=== PATIENT | female | born 1980 | race Caucasian/White ===

== ENCOUNTER 2021-12-31 17:58 | Emergency (ER) | payer OTHER, SELFPAY ==
--- NOTE | ~2021-12-31 | CT_ITS ---
EXAMINATION: CT abdomen pelvis w con DATE: 12/31/2021 21:42 INDICATION: Left lower quadrant abdominal pain. TECHNIQUE: Computed tomography (CT) of the abdomen and pelvis was performed with 100 mL Omnipaque 350 intravenous contrast. Automated exposure control and iterative reconstruction technique were employe d. The dose-length product was 805.88 mGy-cm. COMPARISON: None. FINDINGS: The visualized portions of the lung bases demonstrate mild atelectasis. No pleural effusion . The heart size is normal. No pericardial effusion. There is a small sliding hiatal hernia. There is diffuse hepatic steatosis. There is a gallstone in the gallbladder neck. The gallbladder is distende d. There is fat stranding adjacent to the gallbladder. The spleen, pancreas, adrenal glands, and kidn eys are normal. There is a tubular cystic structure in left adnexa, consistent with hydrosalpinx. The re is a 3.6 cm mass in left ovary measuring greater than simple fluid in attenuation. There are no di lated loops of bowel. The appendix is normal. There are no pathologically enlarged lymph nodes. There is no free intraperitoneal fluid. There is mild lumbar spondylosis. IMPRESSION: 1. Left-sided hydrosalpinx. A 3.6 cm mass in left ovary may be a hemorrhagic cyst or abscess. 2. Acute cholecystitis. 3. Diffuse hepatic steatosis. Reviewed, dictated and finalized at [facility]. IMPRESSION: 1. Left-sided hydrosalpinx. A 3.6 cm mass in left ovary may be a hemorrhagic cy st or abscess. 2. Acute cholecystitis. 3. Diffuse hepatic steatosis.
[2021-12-31 18:00] VITALS: BP 146/98; PULSE 120; RESP 20; TEMP 36.7; O2SAT 98
[2021-12-31 18:14] LABS: Basophils Absolute Auto 0.1 K/mm3 (0.0-0.1); Basophils Percent Auto 0.3 % (0.2-1.2); Eosinophils Percent Auto 0.2 % (0-4.4); Hematocrit 42.6 % (37.0-47.0); Hemoglobin 14.8 g/dL (12.0-15.0); Immature Granulocyte Absolute 0.06 K/mm3 (0.00-0.031); Immature Granulocyte Percent A 0.4 % (0-0.5); Lymphocytes Absolute Auto 2.67 K/mm3 (0.9-3.2); Lymphocytes Percent Auto 16.5 % (18.3-44.2); Mean Corpuscular HGB Conc 34.7 g/dl (32-36); Mean Corpuscular Hemoglobin 31.6 pg (26-34); Mean Corpuscular Volume 90.8 fl (80-100); Mean Platelet Volume 10.4 fl (7.4-10.4); Monocytes Absolute Auto 0.7 K/mm3 (0.1-0.6); Monocytes Percent Auto 4.1 % (2.6-8.5); Neutrophils Absolute Auto 12.7 K/mm3 (1.3-6.7); Neutrophils Percent Auto 78.5 % (45.5-73.1); Platelet Count Result 263 k/mm3 (150-375); Red Blood Count 4.69 M/mm3 (4.2-5.4); Red Cell Distribution Width 12.6 % (11.5-14.5); White Blood Count 16.2 K/mm3 (4.5-10.0)
[2021-12-31 18:25] LABS: Alanine Aminotransferase 36 U/L (6-35); Albumin Level 4.6 g/dL (3.5-5.1); Alkaline Phosphatase 59 U/L (38-126); Anion Gap 14 mmol/L (8-16); Aspartate Amino Transferase 37 U/L (14-36); Bilirubin,Total 0.5 mg/dL (0.2-1.3); Blood Urea Nitrogen 14 mg/dL (7-17); Calcium 9.5 mg/dL (8.4-10.2); Carbon Dioxide 19 mmol/L (22-30); Chloride 107 mmol/L (98-107); Estimated CRCL calculation 122 ml/min; Estimated Glomerular Filt Rate > 60; Glucose 115 mg/dL (65-110); Lipase 70 U/L (23-300); Potassium 3.7 mmol/L (3.4-5.0); Sodium 140 mmol/L (137-145)
--- NOTE | 2021-12-31 20:54 | ED.ABDPAIN ---
HPI - Abdominal Pain General Chief Complaint: Abdominal Pain Stated Complaint: ABD PAIN, HX DIVERTICULITIS Time Seen by Provider: 12/31/21 20:41 History of Present Illness HPI narrative: Patient is a 41-year-old G1, P1 female here for evaluation of left lower quadrant abdominal pain for the past several days. Patient states the pain is aching and cramping in nature and feels similar to her history of diverticulitis. Additionally notes some nausea but no vomiting. Has attempted Tylenol 3 without relief of her pain. Her last bowel movement was normal for her. No fevers or chills, chest pain or shortness of breath. She is sexually active, denies any vaginal discharge. Related Data Allergies Allergy/AdvReac Type Severity Reaction Status Date / Time nystatin Allergy Hives Verified 12/31/21 20:55 Review of Systems Review of Systems: Gen: Denies fevers or chills Eyes: Denies eye pain or visual change ENT: Denies congestion Respiratory: Denies shortness of breath or cough CV: Denies chest pain or palpitations GI: Reports abdominal pain and nausea. Denies emesis or diarrhea denies burning, urgency, frequency or hematuria Musculoskeletal: Denies back pain or muscle pain Neuro: Denies numbness, tingling, weakness or focal weakness Skin: Denies rash Except as documented, all other systems reviewed and negative Exam Narrative: APPEARANCE: Uncomfortable appearing. Head: Normocephalic and atraumatic. EYES: PERRLA/EOMI, conjunctivae clear NOSE: No nasal drainage EARS: External ear normal in appearance THROAT: Oropharynx is clear. Mucous membranes are moist. NECK: Supple. No adenopathy, no masses. RESPIRATORY: Airway patent, respirations nonlabored. Clear to auscultation bilaterally, no rales, rhonchi, wheezing. CARDIOVASCULAR: Regular rate and rhythm without murmurs, rubs, or gallops. ABDOMINAL: Guarding left lower quadrant, tender in that area with no rebound tenderness. : Exam performed with cryptographic clerk Estrellita. Large amount of thin white vaginal discharge noted in vault. Patient notes discomfort with pelvic exam but does not have CMT. MUSCULOSKELETAL: Extremities are warm and well-perfused. Moves all extremities well. No edema. NEURO: Normal speech. No focal neurologic deficits. SKIN: Skin is warm and dry. No rashes. PSYCHIATRIC: Normal affect/mood. Course Consultations Consultation #1: Spoke with Dr. Leon, wash tub machine operator, regarding findings of cyst (hemorrhagic vs abscess), no need for an acute intervention, recommends watchful waiting and will see in clinic as outpatient Date: 12/31/21 Time: 22:56 Consultation #2: Spoke with Dr. Rascon, general surgery, feels the patient may go home with antibiotics and pain meds to follow-up in office Date: 01/01/22 Time: 01:02 Vital Signs Vital signs: Vital Signs Temperature 98.0 F 12/31/21 18:00 Pulse Rate 120 H 12/31/21 18:00 Respiratory Rate 20 12/31/21 18:00 Blood Pressure 146/98 H 12/31/21 18:00 Pulse Oximetry 98 12/31/21 18:00 Oxygen Delivery Room Air 12/31/21 18:00 Temperature 98.0 F 12/31/21 18:00 Pulse Rate 86 12/31/21 23:58 Respiratory Rate 14 12/31/21 23:58 Blood Pressure 124/86 12/31/21 23:58 Pulse Oximetry 99 12/31/21 23:58 Oxygen Delivery Room Air 12/31/21 18:00 MDM - Abdominal Pain MDM Narrative Medical decision making narrative: 41-year-old female here for evaluation of left lower quadrant abdominal pain over the past 4 days is intermittent in nature. Here she is tachycardic, vital signs otherwise normal. She has involuntary guarding in the left lower quadrant and is diffusely tender in her abdomen. Work-up significant for evidence of hydrosalpinx and a cyst in her left ovary that may be hemorrhagic or an abscess. Discussed with Dr. Leon, POULTRY CLE[employer]ER, regarding these findings, does not require any acute intervention but will likely need follow-up with an ultrasound. Patient does have a large amount of vaginal discharge in her vau
[2021-12-31] MEDS: SODIUM CHLORIDE 0.9% IV 1,000 ML 999 ML IV CONT ×2 (21:10→23:57)
[2021-12-31] MEDS: ONDANSETRON INJ 4 MG/2 ML VIAL IV PUSH (21:10)
[2021-12-31] MEDS: MORPHINE SULFATE (*CRX) 4 MG/ML INJ IV PUSH ×2 (21:10→23:57)
[2021-12-31 21:22] LABS: Appearance Urine Clear (Clear); Bilirubin Urine 1+ (Negative); Color Urine Yellow (Yellow); Glucose Urine UA Negative (Negative); Ketones Urine 1+ mg/dL (Negative); Leukocyte Esterase Ur Negative LEU/UL (Negative); Nitrate Urine Negative (Negative); Protein Urine Trace mg/dL (Negative); Specific Grav Ur >= 1.030 (1.001-1.035); Urobilinogen Urine 0.2 mg/dL (<2.0); pH Urine 5.5 (5.0-9.0)
[2021-12-31 21:31] LABS: Lactic Acid Reflex 1.4 mmol/L (0.7-2.0)
[2021-12-31 21:33] LABS: Mucus Urine Heavy /lpf; Squamous Epithelial Cell Urine Moderate /hpf (Few); WBC Urine 0-3 /hpf
[2021-12-31 21:35] LABS: Add Urine Microscopic? YES; Blood Urine Trace-Intact (Negative)
[2021-12-31 23:58] VITALS: BP 124/86; PULSE 86; RESP 14; O2SAT 99
== END 2022-01-01 04:19 | disposition home or self-care (01) ==
PROVIDERS: Emergency Medicine; Physician Assistant; Emergency Provider Emergency Medicine
DX: K81.0 Acute cholecystitis (principal); K76.0 Fatty (change of) liver, not elsewhere classified; N70.11 Chronic salpingitis; N83.9 Noninflammatory disorder of ovary, fallopian tube and broad ligament, unspecified
CPT/HCPCS: 36415; 74177; 80053; 81001; 81025; 83605; 83690; 85025; 87040; 87070; 87491; 87591; 87808; 96361; 96365; 96375; 96376; 99284; J2270; J2405; J2543; J7030; Q9967

== ENCOUNTER 2023-07-26 00:02 | Emergency (ER) | payer OTHER, SELFPAY ==
--- NOTE | ~2023-07-26 | US_ITS ---
Pelvic ultrasound. Clinical History: Left lower quadrant pain, cystic mass on CT Technique: Realtime transabdominal and transvaginal scanning of the pelvis was performed. Color flow Doppler and Doppler spectral analysis were performed. Findings: The uterus is anteverted. The endometrial stripe is poorly delineated. No focal mass is id entified. The right ovary is not visualized. No significant right ovarian or adnexal mass is seen. The left ovary measures approximately 8.6 x 5.2 x 5.1 cm. Large simple resolving hemorrhagic left ova taurus cyst measures 5.6 x 5.0 x 4.4 cm. There is additional complex left ovarian cyst, likely acute he morrhagic cyst, measuring 3.1 cm in maximum diameter. There is no evidence of free fluid in the cul de sac. Impression: Enlarged left ovary with 5.6 cm simple versus resolving hemorrhagic cyst and 3.1 cm hemorrhagic cyst. Consider follow-up ultrasound in 6-8 weeks to reassess. Reviewed, dictated and finalized at [facility]. Impression: Enlarged left ovary with 5.6 cm simple versus resolving hemorrhagic cyst and 3. 1 cm hemorrhagic cyst. Consider follow-up ultrasound in 6-8 weeks to reassess.
--- NOTE | ~2023-07-26 | CT_ITS ---
Non-contrast CT scan of the Abdomen and Pelvis Clinical indication: Left flank pain Technique: 2.5 mm axial scans were obtained through the abdomen and pelvis without intravenous or or al contrast. Dose reduction technique was used on this scan by utilizing automated exposure control a nd iterative reconstruction technique. The dose-length product (DLP) was 1201.91 mGy-cm. Findings: Images through the lung bases reveal no abnormalities. There is a 3 mm stone at the very distal left ureter, with mild left hydroureteronephrosis and left p erinephric stranding. No right renal or right ureteral stone. No right hydronephrosis. There is diffuse hepatic steatosis. Small calcified gallstone present. The spleen, pancreas, and adre nals appear normal. There is no aortic aneurysm. There is no evidence of bowel obstruction. Images through the pelvis were performed. There is no evidence of ascites or lymphadenopathy. Left ad nexal probable cystic mass measures approximately 6.4 cm in diameter. Urinary bladder unremarkable. Impression: 3 mm distal left ureteral stone with mild left hydroureteronephrosis. 6.4 cm probable cystic left adnexal mass. Consider ultrasound for further evaluation. Cholelithiasis. Diffuse hepatic stenosis. Reviewed, dictated and finalized at [facility]. Impression: 3 mm distal left ureteral stone with mild left hydroureteronephrosis. 6.4 cm probable cystic left adnexal mass. Consider ultrasound for further evalu ation. Cholelithiasis. Diffuse hepatic stenosis.
[2023-07-26 00:06] VITALS: BP 166/116; PULSE 106; RESP 15; TEMP 37.1; O2SAT 100
[2023-07-26 00:30] LABS: Basophils Percent Auto 0.3 % (0.2-1.2); Eosinophils Absolute Auto 0.1 K/mm3 (0-0.3); Eosinophils Percent Auto 0.6 % (0-4.4); Hematocrit 42.3 % (37.0-47.0); Hemoglobin 14.9 g/dL (12.0-15.0); Immature Granulocyte Absolute 0.03 K/mm3 (0.00-0.031); Immature Granulocyte Percent A 0.3 % (0-0.5); Immature Platelet Fraction Pct 4.4 % (0.9-11.2); Lymphocytes Absolute Auto 3.29 K/mm3 (0.9-3.2); Lymphocytes Percent Auto 30.5 % (18.3-44.2); Mean Corpuscular HGB Conc 35.2 g/dl (32-36); Mean Corpuscular Hemoglobin 31.2 pg (26-34); Mean Corpuscular Volume 88.5 fl (80-100); Mean Platelet Volume 10.7 fl (7.4-10.4); Monocytes Absolute Auto 0.6 K/mm3 (0.1-0.6); Monocytes Percent Auto 5.7 % (2.6-8.5); Neutrophils Absolute Auto 6.8 K/mm3 (1.3-6.7); Neutrophils Percent Auto 62.6 % (45.5-73.1); Platelet Count Result 249 k/mm3 (150-375); Red Blood Count 4.78 M/mm3 (4.2-5.4); Red Cell Distribution Width 12.3 % (11.5-14.5); White Blood Count 10.8 K/mm3 (4.5-10.0)
[2023-07-26 00:33] VITALS: BP 132/63; PULSE 89; RESP 16; O2SAT 98
--- NOTE | 2023-07-26 00:59 | ED.ABDPAIN ---
HPI - Abdominal Pain General Chief Complaint: Abdominal Pain <ALBERTO Jose Last Filed: 07/26/23 03:23> Stated Complaint: back pain <ALBERTO Jose Last Filed: 07/26/23 03:23> Time Seen by Provider: 07/26/23 00:38 <ALBERTO Jose Last Filed: 07/26/23 03:23> Source: patient <ALBERTO Jose Last Filed: 07/26/23 03:23> Mode of arrival: ambulatory <ALBERTO Jose Last Filed: 07/26/23 03:23> Limitations: no limitations <ALBERTO Jose Last Filed: 07/26/23 03:23> History of Present Illness HPI narrative: Patient is a 42-year-old female who presents the ED with report of left lower back/left flank pain. Patient reports she has had pain since around 1pm today. Has been progressively worsening. She has been driving to and from [place] over the last couple of days and thought the pain may be related to sitting for prolonged period. She tried taking a Tylenol 3 without improvement. Reports pain has began to radiate around to her left lower abdomen. Denies personal history of kidney stones, but does report family history. Reports nausea, denies vomiting. Reports oliguria, dribbling of urine. Denies dysuria, hematuria. Denies fevers. <ALBERTO Jose Last Filed: 07/26/23 03:23> Related Data Allergies/Adverse Reactions: Allergies Allergy/AdvReac Type Severity Reaction Status Date / Time nystatin Allergy Hives Verified 12/31/21 20:55 <ALBERTO Jose Last Filed: 07/26/23 03:23> Review of Systems Review of Systems: CONSTITUTIONAL: Denies fever, chills, or sweats. CARDIOVASCULAR: Denies chest pain. RESPIRATORY: Denies dyspnea. GASTROINTESTINAL: See HPI. GENITOURINARY: See HPI. MUSCULOSKELETAL: See HPI. NEUROLOGIC: Denies headache, dizziness, numbness, or weakness. <ALBERTO Jose Last Filed: 07/26/23 03:23> All systems reviewed & are unremarkable except as noted in HPI and below <ALBERTO Jose Last Filed: 07/26/23 03:23> Exam Narrative: GENERAL: Mildly uncomfortable appearing, obese with BMI of 36.3, non-toxic, in no acute distress. HEAD: Normocephalic, atraumatic. RESPIRATORY: Airway patent, respirations nonlabored. Clear to auscultation bilaterally, no rales, rhonchi, wheezing. CARDIOVASCULAR: Regular rate and rhythm without murmurs, rubs, or gallops. ABDOMINAL: Soft, TTP in L lower abdomen, nondistended. Normoactive BS. +CVA tenderness to percussion on L. MUSCULOSKELETAL: Moves all extremities. No gross deformities. SKIN: Warm, dry, normal color. NEURO: A&O X3. Speech clear. PSYCHIATRIC: Appropriate mood and affect. Normal interaction. <ALBERTO Jose Last Filed: 07/26/23 03:23> Course Vital Signs Vital signs: Vital Signs Temperature 37.1 C 07/26/23 00:06 Pulse Rate 106 H 07/26/23 00:06 Respiratory Rate 15 07/26/23 00:06 Blood Pressure 166/116 H 07/26/23 00:06 Pulse Oximetry 100 07/26/23 00:06 Oxygen Delivery Room Air 07/26/23 00:06 Temperature 37.1 C 07/26/23 00:06 Pulse Rate 76 07/26/23 03:39 Respiratory Rate 13 07/26/23 03:39 Blood Pressure 104/74 07/26/23 03:39 Pulse Oximetry 97 07/26/23 03:39 Oxygen Delivery Room Air 07/26/23 00:06 <ALBERTO Jose Last Filed: 07/26/23 03:23> Vital Signs Temperature 37.1 C 07/26/23 00:06 Pulse Rate 106 H 07/26/23 00:06 Respiratory Rate 15 07/26/23 00:06 Blood Pressure 166/116 H 07/26/23 00:06 Pulse Oximetry 100 07/26/23 00:06 Oxygen Delivery Room Air 07/26/23 00:06 Temperature 37.1 C 07/26/23 00:06 Pulse Rate 76 07/26/23 03:39 Respiratory Rate 13 07/26/23 03:39 Blood Pressure 104/74 07/26/23 03:39 Pulse Oximetry 97 07/26/23 03:39 Oxygen Delivery Room Air 07/26/23 00:06 <Ayaz Reed MD - Last Filed: 07/26/23 05:58> MDM - Abdominal Pain
[2023-07-26] MEDS: MORPHINE SULFATE (*CRX) 4 MG/ML INJ IV PUSH (01:27)
[2023-07-26] MEDS: SODIUM CHLORIDE 0.9% IV 1,000 ML 999 ML IV CONT (01:27)
[2023-07-26] MEDS: ONDANSETRON INJ 4 MG/2 ML VIAL IV PUSH ×2 (01:27→05:00)
[2023-07-26 01:41] LABS: Appearance Urine Cloudy (Clear); Bacteria Urine 3+ /hpf; Bilirubin Urine Negative (Negative); Blood Urine 2+ (Negative); Color Urine Yellow (Yellow); Glucose Urine UA Negative (Negative); Ketones Urine Negative (Negative); Leukocyte Esterase Ur Negative LEU/UL (Negative); Nitrate Urine Negative (Negative); Protein Urine Negative (Negative); Specific Grav Ur 1.022 (1.001-1.035); Squamous Epithelial Cell Urine Moderate /hpf (Few); Urobilinogen Urine 0.2 mg/dL (<2.0); pH Urine 6.5 (5.0-9.0)
[2023-07-26 01:47] LABS: Add Urine Microscopic? YES; Alanine Aminotransferase 23 U/L (6-35); Albumin Level 4.3 g/dL (3.5-5.1); Alkaline Phosphatase 55 U/L (38-126); Anion Gap 9 mmol/L (4-12); Aspartate Amino Transferase 25 U/L (14-36); Bilirubin,Total 0.5 mg/dL (0.2-1.3); Blood Urea Nitrogen 17 mg/dL (7-17); Calcium 8.9 mg/dL (8.4-10.2); Carbon Dioxide 23 mmol/L (22-30); Chloride 107 mmol/L (98-107); Estimated CRCL calculation 77 ml/min; Estimated Glomerular Filt Rate > 60; Glucose 134 mg/dL (65-110); Potassium 3.4 mmol/L (3.4-5.0); Sodium 139 mmol/L (137-145)
[2023-07-26] MEDS: HYDROmorphone HCL INJ (*CRX) 1 MG/ML SYR IV PUSH ×2 (02:13→05:01)
[2023-07-26 02:16] VITALS: BP 143/83; PULSE 88; RESP 16; O2SAT 96
[2023-07-26 03:39] VITALS: BP 104/74; PULSE 76; RESP 13; O2SAT 97
--- NOTE | 2023-07-26 04:55 | PC.NURSE ---
Patient states her pain is getting worse and she is feeling worse. Notified EDP Dr. Reed who VRBO 4mg Zofran IVP and 1mg Dilaudid IVP.
[2023-07-26 05:18] LABS: Trichomonas Vag PCR NOT DETECTED (NOT DETECTE)
[2023-07-26 05:43] LABS: Chlamydia trachomatis NOT DETECTED (NOT DETECTE); Neisseria gonorrhoeae PCR NOT DETECTED (NOT DETECTE)
[2023-07-26 06:08] VITALS: BP 117/62; PULSE 67; RESP 15; TEMP 36.6; O2SAT 99
== END 2023-07-26 06:09 | disposition home or self-care (01) ==
PROVIDERS: Physician Assistant; Emergency Provider Emergency Medicine
DX: N13.2 Hydronephrosis with renal and ureteral calculous obstruction (principal); N83.202 Unspecified ovarian cyst, left side; K80.20 Calculus of gallbladder without cholecystitis without obstruction; K76.0 Fatty (change of) liver, not elsewhere classified
CPT/HCPCS: 36415; 74176; 76830; 76856; 80053; 81001; 81025; 85025; 85055; 87086; 87491; 87591; 87661; 96361; 96374; 96375; 96376; 99284; J1170; J2270; J2405; J7030